=== PATIENT | female | born 1985 | race Caucasian/White ===

== ENCOUNTER 2024-09-21 08:02 | Day surgery (SDC) | payer BC ==
[2024-09-08 13:46] VITALS: BMI 29.2
[2024-09-21 09:45] VITALS: TEMP 98
[2024-09-21 09:48] VITALS: BP 113/59; PULSE 85; RESP 19
== END 2024-09-21 09:59 | disposition home or self-care (01) ==
LOC: FASU-ENDO 08:02
PROVIDERS: ATTEND Internal Medicine Gastroenterology
PROC: 0DB78ZX Excision of Stomach, Pylorus, Via Natural or Artificial Opening Endoscopic, Diagnostic (ICD-10-PCS; 2024-09-21)
PROC: 0DB68ZX Excision of Stomach, Via Natural or Artificial Opening Endoscopic, Diagnostic (ICD-10-PCS; 2024-09-21)
PROC: 0DB98ZX Excision of Duodenum, Via Natural or Artificial Opening Endoscopic, Diagnostic (ICD-10-PCS; principal; 2024-09-21 08:57)
DX: K29.50 Unspecified chronic gastritis without bleeding (principal); B96.81 Helicobacter pylori [H. pylori] as the cause of diseases classified elsewhere; K44.9 Diaphragmatic hernia without obstruction or gangrene
CPT/HCPCS: 81025; 88305-TC; 88342-TC